=== PATIENT | female | born 1975 | race Caucasian/White ===

== ENCOUNTER → 2019-06-29 15:54 | Outpatient (CLI) | payer OTHER, SELFPAY ==
--- NOTE | ~2019-06-29 | MM_ITS ---
EXAMINATION: MM screening karen BI w [facility] HISTORY: Screening mammogram TECHNIQUE: Craniocaudal and mediolateral oblique 3-D tomosynthesis images were obtained and synthetic 2-D images were generated. CAD analysis was submitted and interpreted. COMPARISON: 10/14/2017 BREAST PARENCHYMAL COMPOSITION: There are scattered areas of fibroglandular density. FINDINGS: There is no evidence of suspicious mass, calcification, or architectural distortion to sugg est malignancy in either breast. There has been no suspicious interval change. IMPRESSION: 1. No mammographic evidence of malignancy. 2. Recommend routine screening mammography in one year. BI-RADS Category 1: Negative Reviewed, dictated and finalized at location A.
== END ==
PROVIDERS: PCP Physician Assistant; Visit Provider Obstetrics & Gynecology
DX: Z12.31 Encounter for screening mammogram for malignant neoplasm of breast (principal)
CPT/HCPCS: 77063; 77067

== ENCOUNTER 2019-10-18 10:33 | Outpatient (CLI) | payer OTHER, SELFPAY ==
--- NOTE | ~2019-10-18 | XR_ITS ---
XR thoracic spine 3V DATE: 10/18/2019 11:01 INDICATION: Thoracic spine generalized pain, radiculopathy. TECHNIQUE: AP, lateral, swimmer views COMPARISON: None FINDINGS: There is minimal dextroscoliosis of the upper thoracic spine. No fracture or dislocation or bone destruction. The thoracic pedicles are intact. No paraspinal soft tissue thickening. IMPRESSION: Minimal scoliosis Reviewed, dictated and finalized at location B. IMPRESSION: Minimal scoliosis
== END 2019-10-18 10:34 | disposition home or self-care (01) ==
PROVIDERS: PCP Physician Assistant; Visit Provider Physician Assistant
DX: M54.14 Radiculopathy, thoracic region (principal)
CPT/HCPCS: 72072

== ENCOUNTER → 2019-12-15 08:29 | Outpatient (CLI) | payer OTHER, SELFPAY ==
--- NOTE | ~2019-12-15 | XR_ITS ---
EXAMINATION:XR cervical spine 4-5V DATE: 12/15/2019 08:58 INDICATION: Neck pain TECHNIQUE: AP, lateral, lateral swimmers and odontoid views of the cervical spine are provided. COMPARISON: None FINDINGS: There is 1 mm of retrolisthesis of C6 on C7. There is straightening of the cervical spine w hich can be positional or due to muscular spasm. Small degenerative osteophytes project from the ante rior endplates of multiple vertebral bodies. The odontoid is intact. No fracture is identified. Verte bral body heights and disk spaces are normal. Prevertebral soft tissues are normal. IMPRESSION: 1. Mild cervical spondylosis without acute findings. Reviewed, dictated and finalized at location A.
== END ==
PROVIDERS: PCP Physician Assistant; Visit Provider Physician Assistant
DX: M79.629 Pain in unspecified upper arm (principal); M41.84 Other forms of scoliosis, thoracic region; M47.22 Other spondylosis with radiculopathy, cervical region
CPT/HCPCS: 72050

== ENCOUNTER → 2019-12-27 12:58 | Outpatient (CLI) | payer OTHER, SELFPAY ==
--- NOTE | ~2019-12-27 | MR_ITS ---
EXAMINATION: MR cervical spine wo con EXAM DATE: 12/27/2019 14:01 INDICATION: Bilateral arm, side pain, right side is worse. TECHNIQUE: Multi-sequential, multiplanar MR images of the cervical spine were obtained without contra st. Axial T2, axial T2 MERGE sequence. Sagittal T1, T2, T2 fat saturation images also obtained. Th ere is no prior study for comparison. FINDINGS: There is mild disc disease C4-C7. There is mild reversal of the normal cervical lordosis w hich may be positional or spasm. The vertebral bodies are aligned in the AP dimension. The spinal cor d signal intensity and intrinsic morphology is normal. Cervicomedullary junction is normal in appeara nce. There are no suspicious marrow signal abnormalities. Paraspinal soft tissue is unremarkable. Level by level evaluation: C2-C3: Disc does not extend beyond the endplate margin. Uncovertebral joint arthropathy: None. Facet joint arthropathy: Mild right. Neural foraminal stenosis: No stenosis. Central canal stenosis: No stenosis. C3-C4: Disc does not extend beyond the endplate margin. Uncovertebral joint arthropathy: Mild left. Facet joint arthropathy: Mild bilateral. Neural foraminal stenosis: No stenosis. Central canal stenosis: No stenosis. C4-C5: Disc does not extend beyond the endplate margin. Uncovertebral joint arthropathy: Minimal bilateral. Facet joint arthropathy: Minimal bilateral. Neural foraminal stenosis: No stenosis. Central canal stenosis: No stenosis. C5-C6: Disc does not extend beyond the endplate margin. Uncovertebral joint arthropathy: Mild. Facet joint arthropathy: Mild. Neural foraminal stenosis: Mild right. Central canal stenosis: Mild. C6-C7: There is a mild diffuse disc bulge. Uncovertebral joint arthropathy: Mild bilateral. Facet joint arthropathy: Minimal. Neural foraminal stenosis: No stenosis. Central canal stenosis: Mild. C7-T1: Disc does not extend beyond the endplate margin. Uncovertebral joint arthropathy: Mild. Facet joint arthropathy: Mild. Neural foraminal stenosis: No stenosis. Central canal stenosis: No stenosis. IMPRESSION: 1. Mild cervical spondylosis. 2. Reversal of cervical lordosis. Reviewed, dictated and finalized at location A.
--- NOTE | ~2019-12-27 | MR_ITS ---
EXAMINATION: MR thoracic spine wo con EXAM DATE: 12/27/2019 14:02 INDICATION: Bilateral arm, side pain. Right arm is worse. TECHNIQUE: Multi-sequential, multiplanar MR images of the thoracic spine were obtained without contra st. Sagittal T1, T2, T2 fat saturation, axial T2 weighted images reviewed. There is no prior study for comparison. FINDINGS: No appreciable scoliosis. The vertebral bodies are aligned in the AP dimension. Vertebral body and disc heights are well-maintained. There are no suspicious marrow signal abnormalities. Ralf artemio soft tissue is unremarkable. The spinal cord signal intensity and intrinsic morphology is glenn l. Mild thoracic facet arthropathy. There is a small central disc protrusion at the midthoracic level . No central canal or neural foraminal stenosis. IMPRESSION: Mild thoracic spondylosis. Reviewed, dictated and finalized at location A. IMPRESSION: Mild thoracic spondylosis.
== END ==
PROVIDERS: Visit Provider Physician Assistant
DX: M47.22 Other spondylosis with radiculopathy, cervical region (principal); M41.84 Other forms of scoliosis, thoracic region; M47.814 Spondylosis without myelopathy or radiculopathy, thoracic region
CPT/HCPCS: 72141; 72146

== ENCOUNTER → 2020-01-19 08:40 | Outpatient (CLI) | payer OTHER, SELFPAY ==
--- NOTE | ~2020-01-19 | XR_ITS ---
XR chest 2V DATE: 01/19/2020 08:58 INDICATION: Arm and axillary pain TECHNIQUE: PA and lateral views COMPARISON: None FINDINGS: Normal heart size. No hilar or mediastinal enlargement. No pulmonary infiltrate or consolid ation, pleural effusion or pulmonary vascular congestion or pneumothorax. Included skeletal structure s are unremarkable. IMPRESSION: Negative Reviewed, dictated and finalized at location A. IMPRESSION: Negative
== END ==
PROVIDERS: PCP Physician Assistant; Visit Provider Physician Assistant
DX: M79.629 Pain in unspecified upper arm (principal)
CPT/HCPCS: 71046

== ENCOUNTER → 2020-11-01 12:34 | Outpatient (CLI) | payer OTHER, SELFPAY ==
--- NOTE | ~2020-11-01 | MM_ITS ---
EXAMINATION: MM screening karen BI w [facility] HISTORY: Screening TECHNIQUE: Craniocaudal and mediolateral oblique 3-D tomosynthesis images were obtained and synthetic 2-D images were generated. CAD analysis was submitted and interpreted. COMPARISON: Comparison to multiple prior studies sequentially, with oldest reviewed study dated 06/2017. BREAST PARENCHYMAL COMPOSITION: There are scattered areas of fibroglandular density. FINDINGS: There is no evidence of suspicious mass, calcification, or architectural distortion to sugg est malignancy in either breast. There has been no suspicious interval change. IMPRESSION: 1. No mammographic evidence of malignancy. 2. Recommend routine screening mammography in one year. Reviewed, dictated and finalized at location A.
== END ==
PROVIDERS: PCP Physician Assistant; Visit Provider Obstetrics & Gynecology
DX: Z12.31 Encounter for screening mammogram for malignant neoplasm of breast (principal)
CPT/HCPCS: 77063; 77067

== ENCOUNTER → 2021-02-16 08:59 | Outpatient (CLI) | payer OTHER, SELFPAY ==
--- NOTE | ~2021-02-16 | XR_ITS ---
EXAMINATION: XR TMJ BI DATE: 02/16/2021 10:32 INDICATION: Arthralgias of bilateral temporomandibular joints TECHNIQUE: Left and right lateral open and closed mouth views of the temperament of the joints were o btained. COMPARISON: None. FINDINGS: There is normal alignment of the bilateral temporal mandibular joints in the closed mouth position. T here is normal anterior translation of the right mandibular condyle joint across the articular tuberc le in the open-mouth view of the right compartment of the joint. There is incomplete anterior transla tion of the left temporomandibular which remains posterior to the articular tubercle on the open-mout h view of the left temporomandibular joint however the mouth is only partially open which limits eval uation. No significant osteoarthritic changes appreciated. No fractures identified. Multiple dental r estorations. IMPRESSION: 1. Normal appearance to the bilateral temporomandibular joints with normal anterior translation with mouth opening on the right. Assessment on the left limited by only partial opening of the mouth for w hich the degree of anterior translation appears appropriate. Reviewed, dictated and finalized at location A. IMPRESSION: 1. Normal appearance to the bilateral temporomandibular joints with normal ante rior translation with mouth opening on the right. Assessment on the left limite d by only partial opening of the mouth for which the degree of anterior transla tion appears appropriate.
== END ==
PROVIDERS: PCP Physician Assistant; Visit Provider Physician Assistant
DX: M26.623 Arthralgia of bilateral temporomandibular joint (principal)
CPT/HCPCS: 70330

== ENCOUNTER → 2022-04-24 14:00 | Outpatient (CLI) | payer OTHER, SELFPAY ==
--- NOTE | ~2022-04-24 | MM_ITS ---
EXAMINATION: MM screening karen BI w [facility] HISTORY: Screening mammogram TECHNIQUE: Craniocaudal and mediolateral oblique 3-D tomosynthesis images were obtained and synthetic 2-D images were generated. CAD analysis was submitted and interpreted. COMPARISON: 11/01/2020, , 11/05 2017 bilateral screening mammogram examinations BREAST PARENCHYMAL COMPOSITION: There are scattered areas of fibroglandular density. FINDINGS: There is no evidence of suspicious mass, calcification, or architectural distortion to sugg est malignancy in either breast. There has been no suspicious interval change. IMPRESSION: 1. No mammographic evidence of malignancy. 2. Recommend routine screening mammography in one year. BI-RADS Category 1: Negative Reviewed, dictated and finalized at location A. 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
== END ==
PROVIDERS: PCP Physician Assistant; Visit Provider Obstetrics & Gynecology
DX: Z12.31 Encounter for screening mammogram for malignant neoplasm of breast (principal)
CPT/HCPCS: 77063; 77067

== ENCOUNTER 2024-07-29 09:50 | Outpatient (CLI) | payer OTHER, SELFPAY ==
--- NOTE | ~2024-07-29 | MM_ITS ---
EXAMINATION: MM screening karen BI [facility] HISTORY: Screening TECHNIQUE: Craniocaudal and mediolateral oblique 3-D tomosynthesis images were obtained and synthetic 2-D images were generated. CAD analysis was submitted and interpreted. COMPARISON: Comparison to multiple prior studies sequentially, with oldest reviewed study dated 06/2017. BREAST PARENCHYMAL COMPOSITION: There are scattered areas of fibroglandular density. FINDINGS: There is no evidence of suspicious mass, calcification, or architectural distortion to sugg est malignancy in either breast. There has been no suspicious interval change. IMPRESSION: 1. No mammographic evidence of malignancy. 2. Recommend routine screening mammography in one year. BI-RADS Category 1: Negative Reviewed, dictated and finalized at location B.
== END 2024-07-29 09:51 | disposition home or self-care (01) ==
LOC: MICIMG 09:51
PROVIDERS: PCP Physician Assistant; Visit Provider Obstetrics & Gynecology
DX: Z12.31 Encounter for screening mammogram for malignant neoplasm of breast (principal)
CPT/HCPCS: 77063; 77067

== ENCOUNTER 2024-09-13 10:02 | Day surgery (SDC) | payer OTHER, SELFPAY ==
[2024-03-23 11:36] VITALS: BMI 26.6
[2024-07-15 14:41] VITALS: BMI 23.4
--- NOTE | 2024-09-13 07:10 | P.PNAN_ITS ---
Anes - Initial Pre Proc Eval Procedure: Operation Date: 09/13/24 12:00 Proposed Procedures p Screening Colonoscopy - Arsh Nevarez MD Date/Time: 09/13/24 07:10 Surgeon: Arsh Nevarez MD Pre Op Diagnosis: Neoplasm Screening Patient Data Age: 49 Gender: F Height: 1.65 m Weight: 64 kg Allergies Allergy/AdvReac Type Severity Reaction Status Date / Time Sulfa (Sulfonamide Allergy Mild RASH Verified 09/13/24 11:10 Antibiotics) Home Medications ?Medication ?Instructions ?Recorded ?Confirmed ?Type bupropion HCl 150 mg 24 hr tablet, 150 mg PO DAILY 07/15/24 09/13/24 History extended release spironolactone 100 mg tablet 100 mg PO Q12H 07/15/24 09/13/24 History tirzepatide 7.5 mg/0.5 mL 7.5 mg subcut WEEKLY 07/15/24 09/13/24 History subcutaneous pen injector (Younjaro) Patient hx anesthesia problems: none Family hx anesthesia problems: none Results Review: All pre-operative results and documents have been reviewed as part of the pre-operative evaluation. [facility] Social History Social History Smoking status: Never smoker Alcohol intake: current Substance use: never Substance use type: does not use Living arrangements: with family Spiritual care concerns: No Anes - Eval Final PreProcedure Day of Procedure 09/13/24 07:10 Patient weight: normal Heart: regular rate and rhythm Lungs: clear to auscultation and normal air movement Airway: Mallampati scale class II Neurological: alert and oriented Last oral intake: >/= 8 hours ASA classification: II Emergent: no Anesthetic plan: proceed Anesthesia type and monitoring: general GIVS and standard monitoring Results Review: All pre-operative results and documents have been reviewed as part of the pre- operative evaluation. Informed Consent: The patient's anesthetic plan and its attendant risks and benefits were discussed with the patient/family/POA. Questions were solicited and answers provided to the satisfaction of the patient/family/POA.
[2024-09-13 10:40] VITALS: BP 120/71; PULSE 92; RESP 18; TEMP 36.9; O2SAT 99
[2024-09-13] MEDS: LACTATED RINGERS 1,000 ML 150 ML IV CONT (10:52)
--- OUTSIDE RECORDS SUMMARY | 2024-09-13 10:56 | XMS_ITS | Data Portability ---
Author Organization [facility] Kassandra Noonan Address [address] [place] [address] Care Team Providers Care Flight Radio Operator Name Role Phone KAVITHA OZUNA Primary Care Provider ENRIQUE Jane Inventory Assistant Assessment Encounter Date Assessment Date Assessment LastModified by Organization Details LastModified Time 07/15/2023 07/15/2023 Mammogram UTD in april pap smear UTD colonoscopy due. Not available 07/15/2023 12:24:39 01/14/2024 01/14/2024 Mammogram UTD in april pap smear UTD colonoscopy due. Not available 01/14/2024 11:52:47 Plan of Treatment Reminders Order Date Submit Date Provider Last Modified By Organization Details Last Modified Time Details Appointments ANY 15 2024 10:00A M LIZZETTE Sullivan Not available Not available Not available Lab rapid strep group A, throat 2024 025 [email or web address] In-Office Order, Internal Use Only DO Not Attach Compendium DO Not Attach Compendium, Do Not Delete/merge, [id number] 08/03/2024 01:31:16 TSH + free T4, serum 2023 025 NICK [facility], [address], [place], [address], 09/12/2024 04:06:30 T3, free, serum or plasma 2023 025 NICK [facility], [address], [place], [address], 09/12/2024 04:06:31 thyropero xidase Ab, serum 2023 025 NICK [facility], [address], [place], [address], 09/12/2024 04:06:31 CBC w/ auto diff 2023 024 NICK Richardson, [address], [place], [address], 01/08/2024 03:36:59 CMP, serum or plasma 2023 024 NICK Richardson, [address], [place], [address], 01/08/2024 03:36:57 vitamin B12 + folate, serum or blood 2023 024 NICK Richardson, [address], [place], [address], 01/08/2024 03:36:57 TSH + free T4, serum 2023 024 NCIK Richardson, [address], [place], [address], 01/08/2024 03:36:56 lipid panel, serum 2023 024 NICK Richardson, [address], [place], [address], 01/08/2024 03:36:56 HbA1c (hemoglob in A1c), blood 2023 024 NICK Richardson, [address], [place], [address], 01/08/2024 03:36:58 Referral None recorded. Procedures colonosco py screening (PROC) 2023 024 [facility], [address] [place], [address], 10/10/2023 15:18:27 Surgeries None recorded. Imaging None recorded. Medication Orders Linzess 72 mcg capsule 2023 [id number], [address], [place], [place], [id number], 01/15/2024 14:04:37 Mounjaro 7.5 mg/0.5 mL subcutane ous pen injector 2023 [id number], [address], [place], [place], [id number], 01/14/2024 12:18:32 Zepbound 10 mg/0.5 mL subcutane ous pen injector 2023 [email or web address] [facility] #[id number], [address], [place], [place], [id number], 12/03/2023 18:28:14 Patient TargetsNo targets recorded. Patient InstructionsNo instructions recorded. Reason for Referral None Reported. Results Created Date Observation Date Name Description Value Unit Range Abnormal Flag Note LastModifiedBy Organization Detail LastModifiedTime 01/07/20 24 01/08/2024 LIPID PANEL W/ CHOL/ HDL RATIO cholesterol, total 179 mg/dL 100-19 9 Not Available [facility] ([facility]) [address] [facility], [place], [address], 01/08/2024 03:36:56 01/07/2001/08/2024 LIPID PANEL W/ CHOL/ HDL RATIO triglyceride s 117 mg/dL 0-149 Not Available [facility] ([facility]) [address] [facility], [place], [address], 01/08/2024 03:36:56 01/07/20 24 01/08/2024 LIPID PANEL W/ CHOL/ HDL RATIO HDL cholesterol 42 mg/dL >39 Not Available [facility] ([facility]) [address] [place], [address], 01/08/2024 03:36:56 01/07/20 24 01/08/2024 LIPID PANEL W/ CHOL/ HDL RATIO VLDL cholesterol amy 21 mg/dL 5-40 Not Available [facility] ([facility]) [address] [place], [address], 01/08/2024 03:36:56 01/07/20 24 01/08/2024 LIPID PANEL W/ CHOL/ HDL RATIO LDL chol calc ([facility]) 116 mg/dL 0-99 above high normal Not Available [facility] ([facility]) [address] [place], [address], 01/08/2024 03:36:56 01/07/20 24 01/08/2024 LIPID PANEL W/ CHOL/ HDL RATIO T. chol/HDL ratio 4.3 ratio 0.0-4. 4 T. Chol/ HDL Ratio Men Women 1/2 Avg.R isk 3.4 3.3 Avg.R isk 5.0 4.4 2X Avg.R isk 9.6 7.1 3X Avg.R isk 23.4 11.0 Not Available [facility] ([facility]) [address] [place], [address], 01/08/2024 03:36:56 01/07/20 24 01/08/2024 TSH+F REE T4 TSH 0.907 uIU/m L 0.450- 4.500 Not Available [facility] ([facility]) [address] [place], [address], 01/08/2024 03:36:56 01/07/20 24 01/08/2024 TSH+F REE T4 T4,free(dire ct) 1.25 NG/dL 0.82-1 .77 Not Available [facility] ([facility]) [address] [place], [address], 01/08/2024 03:36:56 01/07/20 24 01/08/2024 COMP. METAB OLIC PANEL (14) glucose 84 mg/dL 70-99 Not Available [facility] ([facility]) [address] [place], [address], 01/08/2024 03:36:57 01/07/20 24 01/08/2024 COMP. METAB OLIC PANEL (14) BUN 9 mg/dL 6-24 Not Available [facility] ([facility]) [address] [place], [address], 01/08/2024 03:36:57 01/07/20 24 01/08/2024 COMP. METAB OLIC PANEL (14) creatinine 0.95 mg/dL 0.57-1 .00 Not Available [facility] ([facility]) [address] [place], [address], 01/08/2024 03:36:57 01/07/20 24 01/08/2024 COMP. METAB OLIC PANEL (14) eGFR 75 mL/mi n/1.7 3 >59 Not Available [facility] ([facility]) [address] [place], [address], 01/08/2024 03:36:57 01/07/20 24 01/08/2024 COMP. METAB OLIC PANEL (14) BUN/creatini ne ratio 9 9-23 Not Available [facility] ([facility]) [address] [place], [address], 01/08/2024 03:36:57 01/07/20 24 01/08/2024 COMP. METAB OLIC PANEL (14) sodium 136 mmol/ L 134-14 4 Not Available [facility] ([facility]) [address] [place], [address], 01/08/2024 03:36:57 01/07/20 24 01/08/2024 COMP. METAB OLIC PANEL (14) potassium 4.7 mmol/ L 3.5-5. 2 Not Available [facility] ([facility]) [address] [place], [address], 01/08/2024 03:36:57 01/07/20 24 01/08/2024 COMP. METAB OLIC PANEL (14) chloride 99 mmol/ L 96-106 Not Available [facility] ([facility]) [address] [place], [address], 01/08/2024 03:36:57 01/07/20 24 01/08/2024 COMP. METAB OLIC PANEL (14) carbon dioxide, total 23 mmol/ L 20-29 Not Available [facility] ([facility]) [address] [place], [address], 01/08/2024 03:36:57 01/07/20 24 01/08/2024 COMP. METAB OLIC PANEL (14) calcium 9.8 mg/dL 8.7-10 .2 Not Available [facility] ([facility]) [address] [place], [address], 01/08/2024 03:36:57 01/07/20 24 01/08/2024 COMP. METAB OLIC PANEL (14) protein, total 7.0 g/dL 6.0-8. 5 Not Available [facility] ([facility]) [address] [facility] [place], [address], 01/08/2024 03:36:57 01/07/20 24 01/08/2024 COMP. METAB OLIC PANEL (14) albumin 4.6 g/dL 3.9-4. 9 Not Available [facility] ([facility] [address] [facility] [place], [address], 01/08/2024 03:36:57 01/07/20 24 01/08/2024 COMP. METAB OLIC PANEL (14) globulin, total 2.4 g/dL 1.5-4. 5 Not Available [facility] ([facility]) [address] [facility] [place], [address], 01/08/2024 03:36:57 01/07/20 24 01/08/2024 COMP. METAB OLIC PANEL (14) bilirubin, total 0.6 mg/dL 0.0-1. 2 Not Available [facility] ([facility]) [address] [facility] [place], [address], 01/08/2024 03:36:57 01/07/20 24 01/08/2024 COMP. METAB OLIC PANEL (14) alkaline phosphatase 60 IU/L 44-121 Not Available [facility] ([facility]) [address] [facility] [place], [address], 01/08/2024 03:36:57 01/07/20 24 01/08/2024 COMP. METAB OLIC PANEL (14) AST (SGOT) 18 IU/L 0-40 Not Available [facility] ([facility]) [address] [facility] [place], [address], 01/08/2024 03:36:57 01/07/20 24 01/08/2024 COMP. METAB OLIC PANEL (14) ALT (SGPT) 17 IU/L 0-32 Not Available [facility] ([facility]) [address] [facility] [place], [address], 01/08/2024 03:36:57 01/07/20 24 01/08/2024 VITAM IN B12 AND FOLAT E vitamin B12 670 pg/mL 232-12 45 Not Available [facility] ([facility]) [address] [facility] [place], [address], 01/08/2024 03:36:57 01/07/20 24 01/08/2024 VITAM IN B12 AND FOLAT E folate (folic acid), serum >20.0 NG/mL >3.0 A serum folat e roverto ntrat ion of less than 3.1 ng/mL is consi dered to repre sent clini amy defic iency . Not Available [facility] ([facility]) [address] [facility], [place], [address], 01/08/2024 03:36:57 01/07/2001/08/2024 HEMOG LOBIN A1C hemoglobin A1C 5.4 % 4.8-5. 6 Predi abete s: 5.7 - 6.4 Diabe christo: >6.4 Glyce laurel contr ol for adult s with diabe christo: <7.0 Not Available [facility] ([facility]) [address] [facility], [place], [address], 01/08/2024 03:36:58 01/07/2001/07/2024 CBC WITH DIFFE RENTI AL/PL ATELE T WBC 4.9 x10e3 /uL 3.4-10 .8 Not Available [facility] ([facility]) [address] [facility], [place], [address], 01/08/2024 03:36:59 01/07/20 24 01/07/2024 CBC WITH DIFFE RENTI AL/PL ATELE T RBC 4.73 x10e6 /uL 3.77-5 .28 Not Available [facility] ([facility]) [address] [facility], [place], [address], 01/08/2024 03:36:59 01/07/2001/07/2024 CBC WITH DIFFE RENTI AL/PL ATELE T hemoglobin 15.1 g/dL 11.1-1 5.9 Not Available [facility] ([facility]) [address] [place], [address], 01/08/2024 03:36:59 01/07/2001/07/2024 CBC WITH DIFFE RENTI AL/PL ATELE T hematocrit 45.5 % 34.0-4 6.6 Not Available [facility] ([facility]) [address] [place], [address], 01/08/2024 03:36:59 01/07/20 24 01/07/2024 CBC WITH DIFFE RENTI AL/PL ATELE T MCV 96 fL 79-97 Not Available [facility] ([facility]) [address] [facility], [place], [address], 01/08/2024 03:36:59 01/07/20 24 01/07/2024 CBC WITH DIFFE RENTI AL/PL ATELE T MCH 31.9 pg 26.6-3 3.0 Not Available [facility] ([facility]) [address] [facility], [place], [address], 01/08/2024 03:36:59 01/07/20 24 01/07/2024 CBC WITH DIFFE RENTI AL/PL ATELE T MCHC 33.2 g/dL 31.5-3 5.7 Not Available [facility] ([facility]) [address] [place], [address], 01/08/2024 03:36:59 01/07/20 24 01/07/2024 CBC WITH DIFFE RENTI AL/PL ATELE T RDW 12.0 % 11.7-1 5.4 Not Available [facility] ([facility]) [address] [place], [address], 01/08/2024 03:36:59 01/07/20 24 01/07/2024 CBC WITH DIFFE RENTI AL/PL ATELE T platelets 377 x10e3 /uL 150-45 0 Not Available [facility] ([facility]) [address] [place], [address], 01/08/2024 03:36:59 01/07/20 24 01/07/2024 CBC WITH DIFFE RENTI AL/PL ATELE T neutrophils 53 % notest ab. Not Available [facility] ([facility]) [address] [place], [address], 01/08/2024 03:36:59 01/07/20 24 01/07/2024 CBC WITH DIFFE RENTI AL/PL ATELE T lymphs 36 % notest ab. Not Available [facility] ([facility]) [address] [facility], [place], [address], 01/08/2024 03:36:59 01/07/20 24 01/07/2024 CBC WITH DIFFE RENTI AL/PL ATELE T monocytes 8 % notest ab. Not Available [facility] ([facility]) [address] [facility], [place], [address], 01/08/2024 03:36:59 01/07/20 24 01/07/2024 CBC WITH DIFFE RENTI AL/PL ATELE T eos 2 % notest ab. Not Available [facility] ([facility]) [address] [facility], [place], [address], 01/08/2024 03:36:59 01/07/20 24 01/07/2024 CBC WITH DIFFE RENTI AL/PL ATELE T basos 1 % notest ab. Not Available [facility] ([facility]) [address] [facility], [place], [address], 01/08/2024 03:36:59 01/07/20 24 01/07/2024 CBC WITH DIFFE RENTI AL/PL ATELE T neutrophils (absolute) 2.6 x10e3 /uL 1.4-7. 0 Not Available [facility] ([facility]) [address] [facility], [place], [address], 01/08/2024 03:36:59 01/07/20 24 01/07/2024 CBC WITH DIFFE RENTI AL/PL ATELE T lymphs (absolute) 1.8 x10e3 /uL 0.7-3. 1 Not Available [facility] ([facility]) [address] [facility], [place], [address], 01/08/2024 03:36:59 01/07/20 24 01/07/2024 CBC WITH DIFFE RENTI AL/PL ATELE T monocytes(ab solute) 0.4 x10e3 /uL 0.1-0. 9 Not Available [facility] ([facility]) [address] [place], [address], 01/08/2024 03:36:59 01/07/20 24 01/07/2024 CBC WITH DIFFE RENTI AL/PL ATELE T eos (absolute) 0.1 x10e3 /uL 0.0-0. 4 Not Available [facility] ([facility]) [address] [facility], [place], [address], 01/08/2024 03:36:59 01/07/20 24 01/07/2024 CBC WITH DIFFE RENTI AL/PL ATELE T baso (absolute) 0.0 x10e3 /uL 0.0-0. 2 Not Available [facility] ([facility]) [address] [facility], [place], [address], 01/08/2024 03:36:59 01/07/20 24 01/07/2024 CBC WITH DIFFE RENTI AL/PL ATELE T immature granulocytes 0 % notest ab. Not Available [facility] ([facility]) [address] [facility], [place], [address], 01/08/2024 03:36:59 01/07/20 24 01/07/2024 CBC WITH DIFFE RENTI AL/PL ATELE T immature grans (abs) 0.0 x10e3 /uL 0.0-0. 1 Not Available [facility] ([facility]) [address] [place], [address], 01/08/2024 03:36:59 08/03/1908/02/2024 rapid strep group A, throa t Strep negati ve Not Available In-Office Order Internal Use Only DO Not Attach Compendium DO Not Attach Compendium, Do Not Delete/merge, [id number] 08/02/2024 16:06:54 07/30/1907/29/2024 MAMMO , scree sophia, digit al, bilat eral No observ ation record ed. [email or web address] [facility] [address], [place], [address], 08/20/2024 12:20:49 Result Notes None recorded. Problems Name Problem SNOMED Code Status Onset Date Resolution Date Notes Provider Name and Address Organization Details Recorded Time Irritable bowel syndrome characterized by constipation 255386477 Active 2023 LIZZETTE Sullivan Attn: Accountin g,[address] [facility], [place], [address], [place] - [facility] 4 09:56:26 Dietary management surveillance Active 2023 LIZZETTE Sullivan Attn: Accountin g,[address] [facility], [place], [address], [place] [facility] 4 09:56:28 Degeneration of lumbar intervertebral disc 87505498 Active 2023 LIZZETTE Sullivan Attn: Accountin g,[address] [facility], [place], [address], [place] [facility] 4 09:56:36 Body mass index 20-24 - normal 067425857 Active 2023 LIZZETTE Sullivan Attn: Accountin g,[address] [facility], [place], [address], [place] [facility] 4 09:56:53 Low back pain 243793429 Active 2023 LIZZETTE Sullivan Attn: Accountin g,[address] [facility], [place], [address], [place] [facility] 4 09:56:55 Reduced libido 1818316 Active 2023 LIZZETTE Sullivan Attn: Accountin g,[address] [facility], [place], [address], [place] [facility] 4 09:57:01 Long-term drug therapy Active 2023 LIZZETTE Sullivan Attn: Neema ferro,[address] [facility], [place], [address], [facility] - [facility] 4 09:57:02 Problem Notes None recorded. Medical Equipment None Reported. Allergies Allergen ID Allergen Name Allergen Category Reaction Reaction Severity Criticality Documentation Date Start Date Code Code System Note Provider Name and Address Organization Details Recorded Time 474891 Substance with sulfonami de structure and antibacte rial mechanism of action (substanc e) medicatio n Not available Not available Not available 07/15/2023 38578 [id number] SNOMED PAULINE Farley, [place] - [facility] 4 12:09:27 Medications Name Sig Start Date Stop Date Status Note LastModified by Organization Details LastModified Time cyclobenzap rine 10 mg tablet TAKE 1 TABLET BY MOUTH EVERY NIGHT AT BEDTIME NEEDED active Not Available Not Available No t Available azithromyci n 250 mg tablet TAKE 2 TABLETS (500 MG) BY ORAL ROUTE ONCE DAILY FOR 1 DAY THEN 1 TABLET (250 MG) BY ORAL ROUTE ONCE DAILY FOR 4 DAYS active Not Available Not Available No t Available fluconazole 150 mg tablet TAKE 1 TABLET BY MOUTH EVERY OTHER DAY FOR 3 DOSES active Not Available Not Available No t Available meloxicam 15 mg tablet TAKE 1 TABLET BY MOUTH EVERY DAY NEEDED active Not Available Not Available No t Available spironolact one 100 mg tablet active Not Available Not Available Not Available terconazole 0.8 % vaginal cream APPLY SMALL AMOUNT VAGINALLY TO THE AFFECTED AREA EVERY NIGHT AT BEDTIME FOR 3 DAYS DIRECTED active Not Available Not Available No t Available tretinoin 0.05 % topical cream APPLY PEA SIZED AMOUNT TOPICALLY TO FACE EVERY NIGHT active Not Available Not Available No t Available amoxicillin 875 mg-potassiu m clavulanate 125 mg tablet TAKE 1 TABLET BY MOUTH TWICE DAILY 01/13 completed Not Available Not Available Not Available bupropion HCl XL 150 mg 24 hr tablet, extended release TAKE 1 TABLET BY MOUTH DAILY active Not Available Not Available No t Available Linzess 72 mcg capsule TAKE 1 CAPSULE BY MOUTH EVERY DAY FOR IRRITABLE BOWEL SYNDROME active Not Available Not Available No t Available Wegovy 1 mg/0.5 mL subcutaneou s pen injector 07/14 completed Not Available Not Available Not Available Mounjaro 7.5 mg/0.5 mL subcutaneou s pen injector ADMINISTE R 7.5 MG UNDER THE SKIN EVERY WEEK active Not Available Not Available No t Available Mounjaro 5 mg/0.5 mL subcutaneou s pen injector ADMINISTE R 5 MG UNDER THE SKIN EVERY WEEK NEEDED 07/14 completed Not Available Not Available Not Available Mounjaro 10 mg/0.5 mL subcutaneou s pen injector ADMINISTE R 10 MG UNDER THE SKIN EVERY WEEK 01/13 completed Not Available Not Available Not Available Zepbound 10 mg/0.5 mL subcutaneou s pen injector Inject by subcutane ous route for 28 days. 12/02 completed Not Available Not Available Not Available Vitals Date Recorded Systolic blood pressure Diastolic blood pressure Provider Name and Address Organization Details Last Updated DateTime 07/15/2023 128 mm[Hg] 84 mm[Hg] LIZZETTE Sullivan Attn: Accounting,[address] [place], [address], [facility] 07/15/2023 12:36:47 Date Recorded Body height Body mass index (BMI) Body weight Respiratory rate Oxygen saturation Oxygen saturation in Arterial blood by Pulse oximetry Heart rate Systolic blood pressure Diastolic blood pressure Provider Name and Address Organization Details Last Updated DateTime 4 165.1 cm 26.6 kg/m2 36028.7 8 g 18 /min 99 % 99 % 85 /min 122 mm[Hg] 72 mm[Hg] Kamran Georges MA [facility] 4 12:16:12 Date Recorded Body height Body mass index (BMI) Body weight Respiratory rate Oxygen saturation Oxygen saturation in Arterial blood by Pulse oximetry Heart rate Systolic blood pressure Diastolic blood pressure Provider Name and Address Organization Details Last Updated DateTime 4 165.1 cm 24.4 kg/m2 17419.7 2 g 18 /min 99 % 99 % 85 /min 130 mm[Hg] 78 mm[Hg] PAULINE Farley [facility] 4 11:34:03 Social History Question Answer Notes LastModified by Organizat ion Details LastModified Time Tobacco Smoking Status Former Smoker Kamran Georges MA null, [facility] 07/15/2023 12:12:13 Do You Have An Advance Directive? No Information n ot available 07/15/2023 Are You Blind Or Do You Have Difficulty Seeing? No Information n ot available 07/15/2023 What Is Your Level Of Caffeine Consumption? Heavy SODA Information not available 07/15/2023 In The 14 Days Before Symptom Onset, Have You Had Close Contact With A Laboratory-confirm ed COVID-19 While That Case Was Ill? No Information n ot available 07/15/2023 In The 14 Days Before Symptom Onset, Have You Had Close Contact With A Person Who Is Under Investigation For COVID-19 While That Person Was Ill? No Information not available 07/15/2023 Have You Been To An Area Known To Be High Risk For COVID-19? No Information not available 07/15/2023 Are You Deaf Or Do You Have Serious Difficulty Hearing? No Information not available 07/15/2023 What Type Of Diet Are You Following? REGULAR Information n ot available 07/15/2023 What Is The Highest Grade Or Level Of School You Have Completed Or The Highest Degree You Have Received? [id number] Information not available 07/15/2023 Are There Any Guns Present In Your Home? No Information not available 01/14/2024 What Was The Date Of Your Most Recent Tobacco Screening? 01/14/2024 Information not available 01/14/2024 What Is Your Current Pack Years? 10-19packyea rs Information not available 07/15/2023 Do You Use Your Seat Belt Or Car Seat Routinely? Yes Information not available 07/15/2023 Do You Have Smoke And Carbon Monoxide Detectors In Your Home? Yes Information not available 07/15/2023 At What Age Did You Start Smoking Tobacco? 17 Information not available 07/15/2023 How Much Tobacco Do You Smoke? No Information not available 07/15/2023 Do You Use Sunscreen Routinely? Yes Information not available 07/15/2023 Has Tobacco Cessation Counseling Been Provided? No Information not available 07/15/2023 How Many Years Have You Smoked Tobacco? 18 Information not available 07/15/2023 Sex: Female Functional Status Question Answer Note LastModified by Organizat ion Details LastModified Time Do you use any illicit or recreational drugs? No Information not available 07/15/2023 Do you or have you ever used any other forms of tobacco or nicotine? No Information not available 07/15/2023 What is your level of alcohol consumption? Occasional Information not available 07/15/2023 Are you currently employed? Yes Information not available 07/15/2023 Are you able to care for yourself? Yes Information n ot available 07/15/2023 What is your occupation? [employer] Information not available 07/15/2023 What is your exercise level? Occasional Information not available 07/15/2023 Mental Status Question Answer Note LastModified by Organization D etails LastModified Time Do you feel stressed (tense, restless, nervous, or anxious, or unable to sleep at night)? [id number] Information not available 07/15/2023 Family History Relationship Description Onset Age of this Age Resolved Age Notes LastModified by Organization Details LastModified Time Father Diabetes mellitus [email or web address] Not available 2023 17:20:52 Father Hypercholest erolemia tcarterma Not available 2023 17:21:06 Mother Disorder of thyroid gland tcarterma Not available 2023 17:20:57 Mother Hypertensive disorder tcarterma Not available 2023 17:21:21 Mother Osteoporosis [email or web address] Not avai lable 07/15/2023 17:21:31 Mother Heart disease tcarterma Not available 2023 11:29:18 Sister Hypercholest erolemia tcarterma Not available 2023 17:21:06 Sister Hypertensive disorder tcarterma Not available 2023 17:21:21 Medical History Condition Response Coronary Artery Disease N Other N Atrial Fibrillation N High Blood Pressure N Depression N COPD N Blood Clots N Anxiety Disorder N Muscle, Joint, or Bone Problems N Acid Reflux (GERD) N Cancer N Stroke N High Cholesterol N Liver Disease N Headaches N Kidney or Bladder Problems N Thyroid Problems N GI Problems N Skin Problems N Anemia N Heart Attack ([place]) N Diabetes N Seizures/Epilepsy N Asthma N Allergies N Hepatitis N Heart Failure N Osteoporosis N Gynecological History Statement/Question Response Flow Light Date of LMP 07/01/2023 Menses Monthly Y Duration of Flow (days) 2 Current Control Method Ablation LMP Approximate Obstetrics History GPAL:G 2 P 2 0 0 2 Type Value Multiple Births 0 Full Term 2 Induced 0 Spontaneous 0 Premature 0 Living 2 Total 2 Past Encounters Encounter ID Performer Location Encounter Start Date Encounter Closed Date Diagnosis/Indication Diagnosis SNOMED-CT Code Diagnosis ICD10 Code Diagnosis Note [id number] Amado Koch MD [facility] [employer] [address] [place] [address] 07/15/2023 11:52:19 07/15/2023 12:43:16 Low back pain [id number] M54.50 stable on meloxicam 150mg daily PRN Degenerati on of lumbar intervertebral disc 77527691 M51.36 as above. hx noted Reduced libido 2478971 R 68.82 taking wellbutrin XL from gyne for libido boost. Screening for malignant neoplasm of colon 018087667 Z12.11 due for baseline colonoscop y screening. Long-term drug therapy [id number] Z79.899 routine labs are due fasting. Cholesterol screening 27 9358226 Z13.220 Diabetes m ellitus screening 755129576 Z13.1 Body mass index 25-29 - overweight 932220451 Z68.26 change to zepbound 10mg weekly dosing for cost savings, since mounjaro pricing is excessive. [id number] Amado Koch MD [facility] [employer] [address] [place] [address] 01/14/2024 11:22:19 01/14/2024 12:47:44 Body mass index 20-24 - normal [id number] Z68.24 BMI Low back pain 998295563 M54.50 stable on meloxicam 150mg daily PRN Degenerati on of lumbar intervertebral disc 67880200 M51.369 Patient is stable at this time, weight loss has helped some for her chronic low back pain related to degenerati ve disc Reduced libido 3846971 R 68.82 taking wellbutrin XL from gyne for libido boost. Long-term drug therapy 100072929 Z79.899 All labs are up-to-date from December and reviewed Irritable bowel syndrome characterized by constipation 510122404 K58.1 Trial of Linzess 72 mcg daily for IBS constipati on symptoms Dietary ma nagement surveillance 394240346 Z71.3 Refill on lower dose Mounjaro 7.5 mg weekly Adult [facility] th examination 749824392 Z00.00 Annual wellness exam completed Thyroid di sorder screening 749885804 Z13.29 Following thyroid function studies while on Mounjaro injectable therapy. [id number] Amado Koch MD [facility] [address] [place] [address] 08/02/2024 15:46:22 08/02/2024 16:24:10 Sore throat 770081178 J02.9 Health Concerns Section Related Observation LastModified by Organization Detai ls LastModified Time None Recorded Concern Status LastModified by Organization Details LastModified Time None Recorded Advance Directives Directive N: Payers Encounter Date Sequence Insurance Name Policy Number Policy Smith Covered Member ID Smith Member ID Guarantor Name 07/15/2023 1 [facility] [id number] Olivia Gomes [id number] Olivia Gomes 07/15/2023 2 [facility] - [employer] (POS II) Anmol Gomes [id number] Olivia Gomes 01/14/2024 1 [facility] [id number] Olivia Gomes [id number] Olivia Gomes 01/14/2024 2 [facility] [employer] (POS II) Anmol Gomes [id number] Olivia Gomes 08/02/2024 1 [facility] [id number] Olivia Gomes [id number] Olivia Gomes 08/02/2024 2 [facility] Anmol Gomes [id number] Olivia Gomes Notes Date Note Type Note Provider Name and Address Organization Details Recorded Time 07/15/2023 text/html Generic HPI TemplateReported bypatient.Notes:pt is here to re-establish with PCP at new office. Hx of lumbar DDD and low back pain. Has improved some with great weight loss on mounjaro therapy. LIZZETTE Sullivan Attn: Accounting,[address] [facility], [place], [address], [facility] 07/17/2023 17:09:15 01/14/2024 text/html Generic HPI TemplateReported bypatient.Notes:Aidee reynoso has had terrific weight loss on injectable Mounjaro therapy. She does have hx of lumbar DDD and low back pain. Has improved some with great weight loss on mounjaro therapy. LIZZETTE Sullivan Attn: Accounting,[address] [facility], [place], [address], [facility] 02/02/2024 09:57:38 OBGyn Episode No OBEpisode recorded.
--- OUTSIDE RECORDS SUMMARY | 2024-09-13 10:56 | XMS_ITS | Clinical Summary ---
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 This disclosure is being madepursuant to the Care Everywhere program and may not contain all information available regarding this patient. Last updated 18.[facility] [employer] Allergies Active Allergy Reactions Criticality Noted Date Comments Sulfa Drugs 03/29/2016 Medications * Be aware that medications may not be up to date on this document. Alwaysverify current medications with the patient. 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 Pulse 86 06/20/2017 10:35 AM REEL CART OPERATOR Temperature 37.1 C (98.8 F) 06/20/2017 10:35 AM REEL CART OPERATOR Respiratory Rate 16 06/20/2017 10:35 AM REEL CART OPERATOR Oxygen Saturation 97% 06/20/2017 10:35 AM REEL CART OPERATOR Inhaled Oxygen Concentration - - Weight 83.9 kg (185 lb) 06/20/2017 10:35 AM REEL CART OPERATOR Height 165.1 cm (5' 5) 06/20/2017 10:35 AM REEL CART OPERATOR Body Mass Index 30.79 06/20/2017 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 REEL CART OPERATOR Plan of Treatment Health Maintenance Due Date Last Done Comments COLOGUARD (AGES 45-75) - COL ON CA SCREENING 1977 COLON MONITORING 1977 COLONOSCOPY - COLON CA SCREENING 1977 CT COLONOGRAPHY - COLON CA SCREENING 1977 Colorectal Cancer Screening 1977 FIT - COLON CA SCREENING 1977 FLEX SIG - COLON CA SCREENING 1977 LIPID TESTING 1977 MAMMOGRAM 1977 HIV SCREENING 1992 HEPATITIS C SCREENING 03/30/1995 DTAP/TDAP/TD VACCINES (1 - Tdap) 1996 HEPATITIS B VACCINE (1 of 3 - 19+ 3-dose series) 1996 SCREENING FOR DIABETES 06/20/2017 COVID-19 VACCINE (1 - 2023-2 5 season) 2023 DEPRESSION SCREENING 04/14/2024 INFLUENZA VACCINE (Season Ended) 2024 ZOSTER VACCINE (1 of 2) 2027 HIB VACCINE Aged Out No longer eligi ble based on patient's age to complete this topic HPV VACCINE Aged Out No longer eligi ble based on patient's age to complete this topic MENINGOCOCCAL (Group B) VACC INE SHARED DECISION-MAKING Aged Out No longer eligibl e based on patient's age to complete this topic MENINGOCOCCAL GROUPS A/C/Y/W VACCINE Aged Out No longer eligible b ased on patient's age to complete this topic PNEUMOCOCCAL VACCINE Aged Out No long er eligible based on patient's age to complete this [place] [address] [facility]
--- OUTSIDE RECORDS SUMMARY | 2024-09-13 10:56 | XMS_ITS | Data Portability ---
Author Organization [facility], Main Office Address [address] [place] [address] Care Team Providers Care Hr Payroll Coordinator Name Role Phone LEYDA MURGUIA Primary Care Provider Assessment No assessment recorded. Plan of Treatment Reminders Order Date Submit Date Provider Last Modified By Organization Details Last Modified Time Details Appointments None recorded. Lab lipid panel, serum 2022 024 [email or web address] 4 [facility], [address], [place], [address], 4 15:04:30 CMP, serum or plasma 2022 024 [email or web address] 4 [facility], 2022 [address], [place], [address], 4 15:04:41 HbA1c (hemoglobin A1c), blood 2022 024 [email or web address] 4 [facility], 2022 [address], [place], [address], 4 15:04:34 vitamin B12, serum 2022 023 [email or web address] [facility], 2022 [address], [place], [address], 3 09:21:11 vitamin D, 25-hydroxy, total, serum 2022 023 [email or web address] [facility], 20[address], [place], [address], 3 09:21:11 lipid panel, serum 2022 023 cindy Paredes, 2022 [address], [place], [address], 3 09:21:11 CMP, serum or plasma 2022 023 cindy Paredes, 2022 [address], [place], [address], 3 09:21:11 CBC w/ auto diff 2022 023 cindy Paredes, 2022 [address], [place], [address], 3 09:21:11 TSH + free T4, serum 2022 023 [email or web address] 4 [facility], 2022 Juliet Perez, [address], [place], [address], 3 09:43:39 urinalysis, dipstick, reflex micro 2022 023 [facility] [address], [address], [place], [address], 3 09:21:12 HbA1c (hemoglobin A1c), blood 2022 023 cindy Paredes, 2022 [address], [place], [address], 3 09:21:11 Referral physical therapist referral 2022 023 [email or web address] [facility], [address] [place], [address], 4 15:04:22 Procedures None recorded. Surgeries None recorded. Imaging None recorded. Medication Orders Mounjaro 10 mg/0.5 mL subcutaneou s pen injector 2022 023 [id number], [address], [place], [place], [id number], 3 16:32:10 meloxicam 15 mg tablet 2022 023 [id number], [address], [place], [place], [id number], 3 11:50:20 Patient TargetsNo targets recorded. Patient InstructionsNo instructions recorded. Reason for Referral Physical Therapist Referral for Low back pain Referring Physician: Leyda Murguia, Internal Medicine, Encounter Date: 11/12/2022 Results Created Date Observation Date Name Description Value Unit Range Abnormal Flag Note LastModifiedBy Organization Detail LastModifiedTime 02/17/20 21 02/17/2021 VITAM IN D, 25-HY DROXY vitamin D, 25-hydroxy 38.9 NG/mL 30.0-1 00.0 Vitam in D defic iency has been defin ed by the Insti tute of Medic ine and an Endoc rine Socie ty pract ice guide line as a level of serum 25-OH vitam in D less than 20 ng/mL (1,2) . The Endoc rine Socie ty [facility] defin e vitam in D insuf ficie ncy as a level betwe en 21 and 29 ng/mL (2). 1. IOM (Inst itute of Medic ine). 2010. Dieta ry refer ence intak es for calci um and D. Josh cooley [place]: The Natio nal [facility] . 2. Raul arenas [place], Uyen horvath [place], Radha off-F errar i SLADE, et al. Evalu ation , treat ment, and preve ntion of vitam in D defic iency : an Endoc rine Socie ty clini amy pract ice guide line. JCEM. 2010; 96(7) :1911 -30. Not Available [facility] ([facility]) [address] [facility], [place], [address], 02/19/2021 03:06:27 02/17/20 21 02/19/2021 A1C W/GLY COMAR K(R) REFLE X Hb A1C diabetic assessment 5.4 %Hb Note: A refle x test was order ed on this speci men. If A1c resul ts are betwe en a value of 6.0 to 8.0 (incl uding 6.0 and 8.0), Glyco Christofer testi ng is perfo rmed. Glyco Christofer refle cts post prand ial gluco se spike s from the past 2 weeks , where as A1c refle cts avera ge glyce laurel contr ol over the past 3 month s. Refer ence Range : Medina l: <5.7 Incre ased risk for diabe christo: 5.7 - 6.4 Ongoi ng Hyper glyce buffy: >6.4 Glyce laurel contr ol for adult s with diabe christo: <7.0 (ADA) Not Available [facility] [address] [place] [address], [address], 02/19/2021 03:06:27 02/17/20 21 02/19/2021 A1C W/GLY COMAR K(R) REFLE X estimated average glucose 108 mg/dL Not Available [facility] [address] [place] [address], [address], 02/19/2021 03:06:27 02/17/20 21 02/19/2021 A1C W/GLY COMAR K(R) REFLE X glycomark(R) (1,5 Ag) tnp ug/mL Testi ng Not Indic ated Refle x not perfo rmed Glyco Christofer( TM) is inten ded for use with manag ing glyce laurel contr ol in diabe tic patie nts. A low resul t corre spond s to high gluco se peaks . 1, 5-AG blood level s can be affec ben by clini amy condi tions or medic ation s. Pleas e refer to the direc tory of servi justina or [facility] websi te test menu for detai led list of limit ation s. Not Available [facility] [address] [facility], [place], [address], 02/19/2021 03:06:27 02/17/20 21 02/17/2021 UA/M W/RFL X CULTU RE, ROUTI NE specific gravity 1.006 1.005- 1.030 Not Available [facility] ([facility]) [address] [facility], [place], [address], 02/19/2021 03:06:26 02/17/20 21 02/17/2021 UA/M W/RFL X CULTU RE, ROUTI NE pH 6.0 5.0-7. 5 Not Available [facility] ([facility]) [address] [facility], [place], [address], 02/19/2021 03:06:26 02/17/20 21 02/17/2021 UA/M W/RFL X CULTU RE ROUTI NE urine-color yellow yellow Not Available [facility] ([facility]) [address] [facility], [place], [address], 02/19/2021 03:06:26 02/17/20 21 02/17/2021 UA/M W/RFL X CULTU RE, ROUTI NE appearance clear clear Not Available [facility] ([facility]) [address] [place], [address], 02/19/2021 03:06:26 02/17/20 21 02/17/2021 UA/M W/RFL X CULTU RE, ROUTI NE WBC esterase negati ve negati ve Not Available [facility] ([facility]) [address] [place], [address], 02/19/2021 03:06:26 02/17/20 21 02/17/2021 UA/M W/RFL X CULTU RE, ROUTI NE protein negati ve negati ve/tra ce Not Available [facility] ([facility]) [address] [place], [address], 02/19/2021 03:06:26 02/17/20 21 02/17/2021 UA/M W/RFL X CULTU RE, ROUTI NE glucose negati ve negati ve Not Available [facility] ([facility]) [address] [facility], [place], [address], 02/19/2021 03:06:26 02/17/20 21 02/17/2021 UA/M W/RFL X CULTU RE, ROUTI NE ketones negati ve negati ve Not Available [facility] ([facility]) [address] [place], [address], 02/19/2021 03:06:26 02/17/2002/17/2021 UA/M W/RFL X CULTU RE, ROUTI NE occult blood negati ve negati ve Not Available [facility] ([facility]) [address] [place], [address], 02/19/2021 03:06:26 02/17/2002/17/2021 UA/M W/RFL X CULTU RE, ROUTI NE bilirubin negati ve negati ve Not Available [facility] ([facility]) [address] [place], [address], 02/19/2021 03:06:26 02/17/2002/17/2021 UA/M W/RFL X CULTU RE, ROUTI NE urobilinogen ,semi-qn 0.2 mg/dL 0.2-1. 0 Not Available [facility] ([facility]) [address] [place], [address], 02/19/2021 03:06:26 02/17/20 21 02/17/2021 UA/M W/RFL X CULTU RE, ROUTI NE nitrite, urine negati ve negati ve Not Available [facility] ([facility]) [address] [place], [address], 02/19/2021 03:06:26 02/17/20 21 02/17/2021 UA/M W/RFL X CULTU RE, ROUTI NE microscopic examination commen t Micro scopi c follo ws if indic ated. Not Available [facility] ([facility]) [address] [facility], [place], [address], 02/19/2021 03:06:26 02/17/20 21 02/17/2021 UA/M W/RFL X CULTU RE, ROUTI NE microscopic examination see below: Micro scopi c was indic ated and was perfo rmed. Not Available [facility] ([facility]) [address] [facility], [place], [address], 02/19/2021 03:06:26 02/17/20 21 02/17/2021 UA/M W/RFL X CULTU RE, ROUTI NE WBC none seen /hpf 0 - 5 Not Available [facility] ([facility]) [address] [facility], [place], [address], 02/19/2021 03:06:26 02/17/20 21 02/17/2021 UA/M W/RFL X CULTU RE, ROUTI NE RBC none seen /hpf 0 - 2 Not Available [facility] ([facility]) [address] [facility], [place], [address], 02/19/2021 03:06:26 02/17/20 21 02/17/2021 UA/M W/RFL X CULTU RE, ROUTI NE epithelial cells (non renal) none seen /hpf 0 - 10 Not Available [facility] ([facility]) [address] [place], [address], 02/19/2021 03:06:26 02/17/20 21 02/17/2021 UA/M W/RFL X CULTU RE, ROUTI NE epithelial cells (renal) pediatric np Not Available [facility] ([facility]) [address] [place], [address], 02/19/2021 03:06:26 02/17/20 21 02/17/2021 UA/M W/RFL X CULTU RELUIS MIGUELI NE casts none seen /lpf none seen Not Available [facility] ([facility]) [address] [facility], [place], [address], 02/19/2021 03:06:26 02/17/20 21 02/17/2021 UA/M W/RFL X CULTU RE, ROUTI NE cast type pediatric np Not Available [facility] ([facility]) [address] [facility], [place], [address], 02/19/2021 03:06:26 02/17/20 21 02/17/2021 UA/M W/RFL X CULTU RE, ROUTI NE crystals pediatric np Not Available [facility] ([facility]) [address] [facility], [place], [address], 02/19/2021 03:06:26 02/17/20 21 02/17/2021 UA/M W/RFL X CULTU RE, ROUTI NE crystal type pediatric np Not Available [facility] ([facility]) [address] [facility], [place], [address], 02/19/2021 03:06:26 02/17/20 21 02/17/2021 UA/M W/RFL X CULTU RE ROUTI NE mucus threads pediatric np Not Available [facility] ([facility]) [address] [facility], [place], [address], 02/19/2021 03:06:26 02/17/20 21 02/17/2021 UA/M W/RFL X CULTU RE ROUTI NE bacteria none seen none seen/f ew Not Available [facility] ([facility]) [address] [facility], [place], [address], 02/19/2021 03:06:26 02/17/20 21 02/17/2021 UA/M W/RFL X CULTU RE, ROUTI NE yeast pediatric np Not Available [facility] ([facility]) [address] [place], [address], 02/19/2021 03:06:26 02/17/20 21 02/17/2021 UA/M W/RFL X CULTU RE, ROUTI NE trichomonas pediatric np Not Available [facility] ([facility]) [address] [facility], [place], [address], 02/19/2021 03:06:26 02/17/20 21 02/17/2021 UA/M W/RFL X CULTU RE, ROUTI NE comment pediatric np Not Available [facility] ([facility]) [address] [facility], [place], [address], 02/19/2021 03:06:26 02/17/20 21 02/17/2021 UA/M W/RFL X CULTU RE, ROUTI NE urinalysis reflex commen t This speci men will not refle x to a Urine Cultu re. Not Available [facility] ([facility]) [address] [place], [address], 02/19/2021 03:06:26 02/17/20 21 02/17/2021 CMP14 +4AC glucose 94 mg/dL 65-99 Not Available [facility] ([facility]) [address] [place], [address], 02/19/2021 03:06:26 02/17/20 21 02/17/2021 CMP14 +4AC BUN 13 mg/dL 6-24 Not Available [facility] ([facility]) [address] [place], [address], 02/19/2021 03:06:26 02/17/20 21 02/17/2021 CMP14 +4AC creatinine 0.77 mg/dL 0.57-1 .00 Not Available [facility] ([facility]) [address] [place], [address], 02/19/2021 03:06:26 02/17/20 21 02/17/2021 CMP14 +4AC eGFR if nonafricn AM 95 mL/mi n/1.7 3 >59 Not Available [facility] ([facility]) [address] [facility], [place], [address], 02/19/2021 03:06:26 02/17/20 21 02/17/2021 CMP14 +4AC eGFR if africn AM 109 mL/mi n/1.7 3 >59 In accor dance with recom menda tions from the NKF-A SN Task force , [facility] is in the proce ss of updat ing its eGFR calcu latio n to the 2020 CKD-E PI creat inine equat ion that estim ates kidne y funct ion witho ut a race varia ble. Not Available [facility] ([facility]) [address] [facility], [place], [address], 02/19/2021 03:06:26 02/17/20 21 02/17/2021 CMP14 +4AC sodium 137 mmol/ L 134-14 4 Not Available [facility] ([facility]) [address] [facility], [place], [address], 02/19/2021 03:06:26 02/17/20 21 02/17/2021 CMP14 +4AC potassium 4.2 mmol/ L 3.5-5. 2 Not Available [facility] ([facility]) [address] [place], [address], 02/19/2021 03:06:26 02/17/20 21 02/17/2021 CMP14 +4AC chloride 97 mmol/ L 96-106 Not Available [facility] ([facility]) [address] [facility], [place], [address], 02/19/2021 03:06:26 02/17/20 21 02/17/2021 CMP14 +4AC carbon dioxide, total 23 mmol/ L 20-29 Not Available [facility] ([facility]) [address] [place], [address], 02/19/2021 03:06:26 02/17/20 21 02/17/2021 CMP14 +4AC calcium 9.8 mg/dL 8.7-10 .2 Not Available [facility] ([facility]) [address] [place], [address], 02/19/2021 03:06:26 02/17/20 21 02/17/2021 CMP14 +4AC phosphorus 3.9 mg/dL 3.0-4. 3 Not Available [facility] ([facility]) [address] [place], [address], 02/19/2021 03:06:26 02/17/20 21 02/17/2021 CMP14 +4AC protein, total 7.7 g/dL 6.0-8. 5 Not Available [facility] ([facility]) [address] [facility], [place], [address], 02/19/2021 03:06:26 02/17/20 21 02/17/2021 CMP14 +4AC albumin 4.8 g/dL 3.8-4. 8 Not Available [facility] ([facility]) [address] [place], [address], 02/19/2021 03:06:26 02/17/20 21 02/17/2021 CMP14 +4AC bilirubin, total 0.3 mg/dL 0.0-1. 2 Not Available [facility] ([facility]) [address] [place], [address], 02/19/2021 03:06:26 02/17/20 21 02/17/2021 CMP14 +4AC alkaline phosphatase 77 IU/L 44-121 Ple ase note refer ence lucy mitchell e Not Available [facility] ([facility]) [address] [facility] [place], [address], 02/19/2021 03:06:26 02/17/20 21 02/17/2021 CMP14 +4AC LDH 208 IU/L 119-22 6 Not Available [facility] ([facility]) [address] [facility], [place], [address], 02/19/2021 03:06:26 02/17/20 21 02/17/2021 CMP14 +4AC AST (SGOT) 25 IU/L 0-40 Not Available [facility] ([facility]) [address] [facility], [place], [address], 02/19/2021 03:06:26 02/17/20 21 02/17/2021 CMP14 +4AC ALT (SGPT) 39 IU/L 0-32 above high normal Not Available [facility] ([facility]) [address] [facility], [place], [address], 02/19/2021 03:06:26 02/17/20 21 02/17/2021 CMP14 +4AC GGT 32 IU/L 0-60 Not Available [facility] ([facility]) [address] [facility], [place], [address], 02/19/2021 03:06:26 02/17/20 21 02/17/2021 CBC WITH DIFFE RENTI AL/PL ATELE T WBC 8.1 x10e3 /uL 3.4-10 .8 Not Available [facility] ([facility]) [address] [facility], [place], [address], 02/19/2021 03:06:25 02/17/20 21 02/17/2021 CBC WITH DIFFE RENTI AL/PL ATELE T RBC 4.58 x10e6 /uL 3.77-5 .28 Not Available [facility] ([facility]) [address] [facility], [place], [address], 02/19/2021 03:06:25 02/17/20 21 02/17/2021 CBC WITH DIFFE RENTI AL/PL ATELE T hemoglobin 14.5 g/dL 11.1-1 5.9 Not Available [facility] ([facility]) [address] [place], [address], 02/19/2021 03:06:25 02/17/20 21 02/17/2021 CBC WITH DIFFE RENTI AL/PL ATELE T hematocrit 43.7 % 34.0-4 6.6 Not Available [facility] ([facility]) [address] [place], [address], 02/19/2021 03:06:25 02/17/20 21 02/17/2021 CBC WITH DIFFE RENTI AL/PL ATELE T MCV 95 fL 79-97 Not Available [facility] ([facility]) [address] [place], [address], 02/19/2021 03:06:25 02/17/20 21 02/17/2021 CBC WITH DIFFE RENTI AL/PL ATELE T MCH 31.7 pg 26.6-3 3.0 Not Available [facility] ([facility]) [address] [place], [address], 02/19/2021 03:06:25 02/17/20 21 02/17/2021 CBC WITH DIFFE RENTI AL/PL ATELE T MCHC 33.2 g/dL 31.5-3 5.7 Not Available [facility] ([facility]) [address] [place], [address], 02/19/2021 03:06:25 02/17/20 21 02/17/2021 CBC WITH DIFFE RENTI AL/PL ATELE T RDW 12.2 % 11.7-1 5.4 Not Available [facility] ([facility]) [address] [place], [address], 02/19/2021 03:06:25 02/17/20 21 02/17/2021 CBC WITH DIFFE RENTI AL/PL ATELE T platelets 318 x10e3 /uL 150-45 0 Not Available [facility] ([facility]) [address] [facility], [place], [address], 02/19/2021 03:06:25 02/17/20 21 02/17/2021 CBC WITH DIFFE RENTI AL/PL ATELE T neutrophils 56 % not estab. Not Available [facility] ([facility]) [address] [facility], [place], [address], 02/19/2021 03:06:25 02/17/20 21 02/17/2021 CBC WITH DIFFE RENTI AL/PL ATELE T lymphs 31 % not estab. Not Available [facility] ([facility]) [address] [facility], [place], [address], 02/19/2021 03:06:25 02/17/20 21 02/17/2021 CBC WITH DIFFE RENTI AL/PL ATELE T monocytes 9 % not estab. Not Available [facility] ([facility]) [address] [facility], [place], [address], 02/19/2021 03:06:25 02/17/20 21 02/17/2021 CBC WITH DIFFE RENTI AL/PL ATELE T eos 3 % not estab. Not Available [facility] ([facility]) [address] [facility], [place], [address], 02/19/2021 03:06:25 02/17/20 21 02/17/2021 CBC WITH DIFFE RENTI AL/PL ATELE T basos 1 % not estab. Not Available [facility] ([facility]) [address] [facility], [place], [address], 02/19/2021 03:06:25 02/17/20 21 02/17/2021 CBC WITH DIFFE RENTI AL/PL ATELE T immature cells pediatric np Not Available [facility] ([facility]) [address] [facility], [place], [address], 02/19/2021 03:06:25 02/17/20 21 02/17/2021 CBC WITH DIFFE RENTI AL/PL ATELE T neutrophils (absolute) 4.5 x10e3 /uL 1.4-7. 0 Not Available [facility] ([facility]) [address] [facility], [place], [address], 02/19/2021 03:06:25 02/17/20 21 02/17/2021 CBC WITH DIFFE RENTI AL/PL ATELE T lymphs (absolute) 2.5 x10e3 /uL 0.7-3. 1 Not Available [facility] ([facility]) [address] [facility], [place], [address], 02/19/2021 03:06:25 02/17/20 21 02/17/2021 CBC WITH DIFFE RENTI AL/PL ATELE T monocytes(ab solute) 0.7 x10e3 /uL 0.1-0. 9 Not Available [facility] ([facility]) [address] [facility], [place], [address], 02/19/2021 03:06:25 02/17/20 21 02/17/2021 CBC WITH DIFFE RENTI AL/PL ATELE T eos (absolute) 0.3 x10e3 /uL 0.0-0. 4 Not Available [facility] ([facility]) [address] [facility], [place], [address], 02/19/2021 03:06:25 02/17/20 21 02/17/2021 CBC WITH DIFFE RENTI AL/PL ATELE T baso (absolute) 0.1 x10e3 /uL 0.0-0. 2 Not Available [facility] ([facility]) [address] [facility], [place], [address], 02/19/2021 03:06:25 02/17/20 21 02/17/2021 CBC WITH DIFFE RENTI AL/PL ATELE T immature granulocytes 0 % not estab. Not Available [facility] ([facility]) [address] [place], [address], 02/19/2021 03:06:25 02/17/20 21 02/17/2021 CBC WITH DIFFE RENTI AL/PL ATELE T immature grans (abs) 0.0 x10e3 /uL 0.0-0. 1 Not Available [facility] ([facility]) [address] [facility], [place], [address], 02/19/2021 03:06:25 02/17/20 21 02/17/2021 CBC WITH DIFFE RENTI AL/PL ATELE T NRBC pediatric np Not Available [facility] ([facility]) [address] [facility], [place], [address], 02/19/2021 03:06:25 02/17/20 21 02/17/2021 CBC WITH DIFFE RENTI AL/PL ATELE T hematology comments: pediatric np Not Available [facility] ([facility]) [address] [place], [address], 02/19/2021 03:06:25 02/17/20 21 02/17/2021 TSH+F REE T4 TSH 1.590 uIU/m L 0.450- 4.500 Not Available [facility] ([facility]) [address] [place], [address], 02/19/2021 03:06:25 02/17/20 21 02/17/2021 TSH+F REE T4 T4,free(dire ct) 1.04 NG/dL 0.82-1 .77 Not Available [facility] ([facility]) [address] [place], [address], 02/19/2021 03:06:25 02/17/20 21 02/17/2021 LP+LD L DIREC T+DLD L/HDL RATIO cholesterol, total 214 mg/dL 100-19 9 above high normal Not Available [facility] ([facility]) [address] [facility], [place], [address], 02/19/2021 03:06:23 02/17/20 21 02/17/2021 LP+LD L DIREC T+DLD L/HDL RATIO triglyceride s 325 mg/dL 0-149 above high normal Not Available [facility] ([facility]) [address] [facility], [place], [address], 02/19/2021 03:06:23 02/17/20 21 02/17/2021 LP+LD L DIREC T+DLD L/HDL RATIO HDL cholesterol 42 mg/dL >39 Not Available [facility] ([facility]) [address] [facility], [place], [address], 02/19/2021 03:06:23 02/17/20 21 02/17/2021 LP+LD L DIREC T+DLD L/HDL RATIO VLDL cholesterol amy 56 mg/dL 5-40 above high normal Not Available [facility] ([facility]) [address] [place], [address], 02/19/2021 03:06:23 02/17/20 21 02/17/2021 LP+LD L DIREC T+DLD L/HDL RATIO LDL chol calc (nih) 116 mg/dL 0-99 above high normal Not Available [facility] ([facility]) [address] [place], [address], 02/19/2021 03:06:23 02/17/20 21 02/17/2021 LP+LD L DIREC T+DLD L/HDL RATIO comment: pediatric np Not Available [facility] ([facility]) [address] [place], [address], 02/19/2021 03:06:23 02/17/20 21 02/17/2021 LP+LD L DIREC T+DLD L/HDL RATIO LDL chol. (direct) 121 mg/dL 0-99 above high normal Not Available [facility] ([facility]) [address] [facility], [place], [address], 02/19/2021 03:06:23 02/17/20 21 02/17/2021 LP+LD L DIREC T+DLD L/HDL RATIO LDL (dir.)/HDL ratio 2.9 ratio 0.0-3. 2 LDL/H DL Men Women 1/2 Avg.R isk 1.0 1.5 Avg.R isk 3.6 3.2 2X Avg.R isk 6.3 5.0 3X Avg.R isk 8.0 6.1 Not Available [facility] ([facility]) [address] [facility], [place], [address], 02/19/2021 03:06:23 06/16/19 21 04/23/2020 XR, ankle , 3 or more view No observ ation record ed. MIGRATION. Not Available 06/12/2022 15:17:34 11/07/19 21 11/01/2020 MAMMO , scree sophia, bilat eral No observ ation record ed. [id number] [facility] [address], [place], [address], 06/12/2022 15:17:34 11/07/19 21 11/01/2020 MAMMO , scree sophia, bilat eral No observ ation record ed. [id number] [facility] [address], [place], [address], 06/12/2022 15:17:34 02/17/20 21 02/16/2021 XR, tempo fang dibul ar joint , bilat eral No observ ation record ed. MIGRATION. [address] , [place], [address], 06/12/2022 15:17:34 02/17/20 21 02/16/2021 XR, tempo fang dibul ar joint , bilat eral No observ ation record ed. [id number] [place] [address], [place], [address], 06/12/2022 15:17:34 04/26/19 23 04/24/2022 MAMMO , vega cortes, digit al, bilat eral No observ ation record ed. [id number] [facility] [address], [place], [address], 06/12/2022 15:17:34 Result Notes None recorded. Problems Name Problem SNOMED Code Status Onset Date Resolution Date Notes Provider Name and Address Organization Details Recorded Time Bilateral temporoman dibular joint pain 1715558154506 9105 Active 2021 Not Available [facility] 3 15:15:07 Vitamin D deficiency 59248932 Active 2021 Not Available [facility] 3 15:15:07 Upper respirator y infection 45727844 Active Not Available [facility] 3 15:15:07 Chronic low back pain 086170886 Active 2022 LIZZETTE Sullivan [address], [address], [place], [address] , [facility] 3 11:48:29 Degenerati on of lumbosacra l interverte bral disc 06230416 Active 2022 LIZZETTE Sullivan [address], [address], [place], [address] , [facility] 3 11:48:35 Low back pain 306801135 Active 2022 LIZZETTE Sullivan [address], [address], [place], [address] , [facility] 3 11:48:47 Mixed hyperlipid emia 337613761 Active 2022 LIZZETTE Sullivan [address], [address], [place], [address] , [facility] 3 16:15:40 Problem Notes None recorded. Medical Equipment None Reported. Allergies Allergen ID Allergen Name Allergen Category Reaction Reaction Severity Criticality Documentation Date Start Date Code Code System Note Provider Name and Address Organization Details Recorded Time 76371 Substance with sulfonami de structure and antibacte rial mechanism of action (substanc e) medicatio n Not available Not available Not available 06/12/2022 55897 8003 SNOMED Not Available [facility] 3 15:17:29 Medications Name Sig Start Date Stop Date Status Note LastModified by Organization Details LastModified Time cyclobenzap rine 10 mg tablet TAKE 1 TABLET BY MOUTH AT BEDTIME NEEDED active Not Available Not Available No t Available prednisone 10 mg tablet 12/11 completed Not Available Not Available Not Available ibuprofen 800 mg tablet TAKE 1 TABLET BY MOUTH TWICE DAILY WITH FOOD NEEDED active Not Available Not Available No t Available fluconazole 150 mg tablet TK 1 T PO QD 06/19 completed Not Available Not Available Not Available benzonatate 200 mg capsule Take 1 capsule 3 times a day by oral route as needed. active Not Available Not Available No t Available hydrocodone 5 mg-acetamin ophen 325 mg tablet Take 1 tablet every 8 hours by oral route as needed. 06/19 completed Not Available Not Available Not Available tretinoin 0.025 % topical cream 06/19 completed Not Available Not Available Not Available fluconazole 200 mg tablet 06/19 completed Not Available Not Available Not Available meloxicam 15 mg tablet Take 1 tablet every day by oral route as needed. active Not Available Not Available No t Available ondansetron HCl 4 mg tablet active Not Available Not Available Not Available spironolact one 100 mg tablet TK 1 T PO D FOR ACNE active Not Available Not Available No t Available Zithromax Z-Facundo 250 mg tablet Take 1 tablet every day by oral route for 6 days. 01/25 completed Not Available Not Available Not Available penicillin V potassium 500 mg tablet 06/19 completed Not Available Not Available Not Available tretinoin 0.05 % topical cream APPLY PEA SIZED AMOUNT TOPICALLY TO FACE EVERY NIGHT 11/12 completed Not Available Not Available Not Available prednisone 10 mg tablets in a dose pack Take 1 tab by mouth, 3 times a day for 3 daysTake 1 tab by mouth 2 times a day for 2 daysTake 1 tab by mouth once a day for 1 day 12/11 completed Not Available Not Available Not Available Tessalon Perles 100 mg capsule Take 1 capsule every 4 hours by oral route as needed. 06/19 completed Not Available Not Available Not Available amoxicillin 875 mg tablet active Not Available Not Available Not Available triamcinolo ne acetonide 0.1 % topical ointment APPLY AA BID PRF RASH 06/19 completed Not Available Not Available Not Available montelukast 10 mg tablet active Not Available Not Available Not Available alprazolam 2 mg tablet 06/19 completed Not Available Not Available Not Available ergocalcife rol (vitamin D2) 1,250 mcg (50,000 unit) capsule TAKE 1 CAPSULE BY MOUTH EVERY WEEK DIRECTED 01/01 completed Not Available Not Available Not Available oxycodone-a cetaminophe n 7.5 mg-325 mg tablet active Not Available Not Available Not Available methylpredn isolone 4 mg tablets in a dose pack 06/19 completed Not Available Not Available Not Available cefdinir 300 mg capsule Take 1 capsule every 12 hours by oral route. active Not Available Not Available No t Available fluticasone propionate 50 mcg/actuati on nasal spray,suspe nsion 2 spray each nostril daily 06/19 completed Not Available Not Available Not Available diazepam 5 mg tablet TK 1 T PO 1 HOUR PRIOR TO PRO. MAY TAKE ADDITIONA L TABLET PRN. active Not Available Not Available No t Available Mononessa (28) 0.25 mg-35 mcg tablet active Not Available Not Available Not Available bupropion HCl XL 150 mg 24 hr tablet, extended release TAKE 1 TABLET BY MOUTH EVERY DAY active Not Available Not Available No t Available Fish Oil 2016 active Not Available Not Available Not Avai lable Zyrtec-D takes daily 2016 active Not Available Not Available Not Avai lable ProAir HFA 90 mcg/actuati on aerosol inhaler active Not Available Not Available Not Available B12 11/12 completed Not Available Not Available Not Available Probiotic 11/12 completed Not Available Not Available Not Available Virtussin AC 10 mg-100 mg/5 mL oral liquid TK 10 ML PO Q 4 TO 6 H PRN 06/19 completed Not Available Not Available Not Available Saxenda 3 mg/0.5 mL (18 mg/3 mL) subcutaneou s pen injector week 1: inject 0.6m sq dailyweek 2: inject 1.2mg sq dailyweek 3: inject 1.8mg sq dailyweek 4: inject 2.4mg sq dailyweek 5: inject 3mg sq daily 02/12 completed Not Available Not Available Not Available Wegovy 1 mg/0.5 mL subcutaneou s pen injector ADMINISTE R 0.5 ML(1 MG) UNDER THE SKIN EVERY WEEK DIRECTED 08/12 completed Not Available Not Available Not Available Wegovy 0.5 mg/0.5 mL subcutaneou s pen injector INJECT 0.5 MG UNDER THE SKIN EVERY WEEK DIRECTED 06/25 completed Not Available Not Available Not Available Mounjaro 7.5 mg/0.5 mL subcutaneou s pen injector ADMINISTE R 7.5 MG UNDER THE SKIN EVERY WEEK DIRECTED active Not Available Not Available No t Available Mounjaro 5 mg/0.5 mL subcutaneou s pen injector ADMINISTE R 5 MG UNDER THE SKIN EVERY WEEK NEEDED 11/12 completed Not Available Not Available Not Available Mounjaro 10 mg/0.5 mL subcutaneou s pen injector Inject 10 mg every week by subcutane ous route as directed. 2022 active Not Available Not Available Not Avai lable Mounjaro 2.5 mg/0.5 mL subcutaneou s pen injector INJECT 2.5 MG UNDER THE SKIN EVERY WEEK DIRECTED 02/12 completed Not Available Not Available Not Available Vitals Date Recorded Body mass index (BMI) Body height Body weight Provider Name and Address Organization Details Last Updated DateTime 06/19/2020 34.1 kg/m2 165.1 cm 89754.44 g Not Available [facility] 06/12/2022 15:14:20 Date Recorded Body height Body temperature Body mass index (BMI) Body weight Respiratory rate Oxygen saturation Oxygen saturation in Arterial blood by Pulse oximetry Heart rate Systolic blood pressure Diastolic blood pressure Provider Name and Address Organization Details Last Updated DateTime 165.1 cm 97.7 [degF] 28.3 kg/m2 63785.7 g 16 /min 98 % 98 % 86 /min 120 mm[Hg] 78 mm[Hg] [facility] [employer] [facility] 3 11:25:25 Date Recorded Body mass index (BMI) Body height Oxygen saturation Oxygen saturation in Arterial blood by Pulse oximetry Heart rate Body temperature Body weight Systolic blood pressure Diastolic blood pressure Provider Name and Address Organization Details Last Updated DateTime 1 34.2 kg/m2 165.1 cm 98 % 98 % 88 /min 98 [degF] 75001.5 9 g 120 mm[Hg] 82 mm[Hg] Not Available [facility] 3 15:14:16 Date Recorded Body mass index (BMI) Body height Oxygen saturation Oxygen saturation in Arterial blood by Pulse oximetry Heart rate Respiratory rate Body temperature Body weight Systolic blood pressure Diastolic blood pressure Provider Name and Address Organization Details Last Updated DateTime 2 35.9 kg/m2 165.1 cm 98 % 98 % 105 /min 16 /min 98.1 [degF] 66534.5 1 g 120 mm[Hg] 80 mm[Hg] Not Available [facility] 3 15:14:17 Date Recorded Body height Body mass index (BMI) Body weight Respiratory rate Oxygen saturation Oxygen saturation in Arterial blood by Pulse oximetry Heart rate Systolic blood pressure Diastolic blood pressure Provider Name and Address Organization Details Last Updated DateTime 3 165.1 cm 27.1 kg/m2 70434.5 6 g 16 /min 99 % 99 % 68 /min 120 mm[Hg] 80 mm[Hg] [facility] [employer] [facility] 3 16:00:16 Social History Question Answer Notes LastModified by Organizat ion Details LastModified Time Tobacco Smoking Status Former Smoker Not Available [facility] 06/12/2022 15:13:16 Do You Have An Advance Directive? Yes [id number] Information not available 06/12/2022 If You Are , What Was Your Level Of Alcohol Consumption Prior To ? None [id number].[id number] 7956 Information not available 06/12/2022 Do You Wear A Helmet When Biking? No MIGRATION.037989 0590 Information not available 06/12/2022 What Is Your Level Of Caffeine Consumption? Moderate MIGRATION.841958 2008 Information not available 06/12/2022 In The 14 Days Before Symptom Onset, Have You Had Close Contact With A Laboratory-confirm ed COVID-19 While That Case Was Ill? No [id number].[id number] 0589 Information not available 06/12/2022 In The 14 Days Before Symptom Onset, Have You Had Close Contact With A Person Who Is Under Investigation For COVID-19 While That Person Was Ill? No [id number].330876 9794 Information not available 06/12/2022 What Type Of Diet Are You Following? REGULAR MIGRATION.586303 5745 Information not available 06/12/2022 What Is The Highest Grade Or Level Of School You Have Completed Or The Highest Degree You Have Received? [id number] MIGRATION.210340 9528 Information not available 06/12/2022 Have There Been Any Changes To Your Family Or Social Situation? No MIGRATION.185632 2146 Information not available 06/12/2022 When Did You Quit Smoking? 6-10yearssinc elastcigarett e MIGRATION.445233 9087 Information not available 06/12/2022 Are There Any Guns Present In Your Home? Yes MIGRATION.299937 9371 Information not available 06/12/2022 Do You Use Insect Repellent Routinely? Yes MIGRATION.159282 1054 Information not available 06/12/2022 Do You Have A Medical Power Of Cash Management Officer? No MIGRATION.787880 2602 Information not available 06/12/2022 Have You Ever Been Counseled For Unhealthy Alcohol Use? No MIGRATION.837438 1845 Information not available 06/12/2022 What Is Your Relationship Status? MIGRATION.407134 9928 Information not available 06/12/2022 Do You Use Your Seat Belt Or Car Seat Routinely? Yes MIGRATION.288327 1372 Information not available 06/12/2022 Do You Have Smoke And Carbon Monoxide Detectors In Your Home? Yes MIGRATION.490535 9165 Information not available 06/12/2022 At What Age Did You Start Smoking Tobacco? 20 MIGRATION.942434 5244 Information not available 06/12/2022 Do You Use Sunscreen Routinely? Yes MIGRATION.949101 4488 Information not available 06/12/2022 Have You Recently Traveled Abroad? No MIGRATION.290623 0365 Information not available 06/12/2022 Do You Have Any Dietary Restrictions? No MIGRATION.521527 2298 Information not available 06/12/2022 Sex: Unknown Functional Status Question Answer Note LastModified by Organizat [employer] Details LastModified Time Do you use any illicit or recreational drugs? No MIGRATION.[id number] 026 Information not available 06/12/2022 Do you or have you ever used any other forms of tobacco or nicotine? No MIGRATION.9472381 026 Information not available 06/12/2022 What is your level of alcohol consumption? Occasional MIGRATION.0928556 026 Information not available 06/12/2022 Are you currently employed? 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 Moderate MIGRATION.[id number] 026 Information not available 06/12/2022 Mental Status Question Answer Note LastModified by Organ[employer] Details LastModified Time Do you feel stressed (tense, restless, nervous, or anxious, or unable to sleep at night)? [id number] [id number].[id number] 6 Information not available 06/12/2022 Family History Relationship Description Onset Age of this Age Resolved Age Notes LastModified by Organization Details LastModified Time Mother History of hypertension [id number] [id number] Not available 06/12/2022 15:13:24 Mother Graves' disease MIGRATION.375 [id number] Not available 06/12/2022 15:13:24 Mother History of thyroid disorder MIGRATION.707 [id number] Not available 06/12/2022 15:13:24 Mother Osteoporosis MIGRATION.0 30 [id number] Not available 06/12/2022 15:13:24 Father Diabetes mellitus MIGRATION.294 [id number] Not available 06/12/2022 15:13:24 Sister History of hypertension MIGRATION.836 [id number] Not available 06/12/2022 15:13:24 Unspecified Relation Malignant neoplastic disease MIGRATION.777 [id number] Not available 06/12/2022 15:13:24 Medical History Condition Response SKIN PROBLEMS Y Gynecological History Statement/Question Response Menses Monthly Y Date of Last Pap 05/15/2016 Date of Last Mammogram 11/01/2020 Current Control Method None Sexually Active? Y Obstetrics History GPAL:G 2 P 0 0 0 2 Type Value Living 2 Total 2 Immunizations Vaccine Type Date Status Note Provider Nam e and Address Organization Details Recorded Time influenza, unspecified formulation 6 completed Not Available [facility] 06/12/2022 15:17:27 Influenza, split virus, quadrivalent, PF 0 completed Not Available [facility] 06/12/2022 15:17:27 Tdap 8 completed Not Available [facility] 06/12/2022 15:17:27 Past Encounters Encounter ID Performer Location Encounter Start Date Encounter Closed Date Diagnosis/Indication Diagnosis SNOMED-CT Code Diagnosis ICD10 Code Diagnosis Note [id number] LIZZETTE Crespo [facility] [address] [place] [address] 06/19/2020 00:00:00 06/19/2020 11:17:00 [id number] LIZZETTE Sullivan [facility] [address] [place] [address] 12/11/2020 00:00:00 12/11/2020 22:02:02 [id number] LIZZETTE Sullivan [facility] [address] [place] [address] 01/01/2022 00:00:00 01/09/2022 18:06:01 [id number] LIZZETTE Sullivan [facility] [address] [place] [address] 11/12/2022 11:18:20 11/12/2022 12:00:31 Degeneration of lumbosacral intervertebral disc 40158685 M51.37 underlying hx noted. see above tx plan. Low back pain 827555689 M54.50 refer to P.T. and start meloxicam 15mg daily. Cholesterol screening 27 2317953 Z13.220 fasting lipids also are due for all other routine annual labs Diabetes m ellitus screening 469891420 Z13.1 Long-term drug therapy 695714483 Z79.899 Endocrine/ metabolic screening 325155758 Z13.800 [id number] LIZZETTE Sullivan [facility] [address] [place] [address] 01/01/2023 15:48:33 01/01/2023 16:17:00 Adult health examination 098776717 Z00.00 well exam completed. labs due in june. november labs reviewed. usrya hook Mixed hyperlipidemia 267 862533 E78.2 improved with diet and weight loss changes. labs due in june next. Diabetes m ellitus screening 715816130 Z13.1 Long-term drug therapy 903692651 Z79.899 Body mass index 30+ - obesity 723469897 Z68.35 refill mounjaro 10mg weekly dosing Health Concerns Section Related Observation LastModified by Organization Detai ls LastModified Time None Recorded Concern Status LastModified by Organization Details LastModified Time None Recorded Advance Directives Directive Y: Payers Encounter Date Sequence Insurance Name Policy Number Policy Smith Covered Member ID Smith Member ID Guarantor Name 11/12/[address] [facility] ([employer] [id number] Olivia Gomes [id number] Olivia Gomes 11/12/2022 2 [employer] - [employer] CHOICE POS II (PPO) [id number] Anmol Gomes [id number] Olivia Gomes 01/01/[address] [facility] ([employer]) [id number] Olivia Gomes [id number] Olivia Gomes 01/01/2023 2 [facility] - [employer] CHOICE POS II (PPO) [id number] Anmol Gomes [id number] Olivia Gomes Notes Date Note Type Note Provider Name and Address Organization Details Recorded Time 12/11/2020 text/html Generic HPI TemplateReported bypatient.Notes:Pt is here today for her wellness exam, doing fine,no complaints Not Available [facility] 12/11/2020 22:02:02 01/01/2022 text/html Generic HPI TemplateReported bypatient.Notes:Pt is here for her wellness. No chronic problems. No complaints today except she wants to talk about options w/her weight. Not Available [facility] 01/09/2022 18:06:01 11/12/2022 text/html Back PainReporte d bypatient.Location:lo wer back and radiating to hips Quality:ache Severity:same;pain level 5/10;moderate (5-7);interference with sleep;interference with work Duration:acute; intermittent; worse at night Onset/Timinweeks ago Context:trauma (back in 2017); unusual activity (down on the ground w/puppy a lot); prior back problems Alleviating Factors:nothing yet, she wants a referral to PT to strengthen lower back Aggravating Factors:sitting on floor or hard chair Associated Symptoms:no fever; no weak limbs; no numbness of the legs/feet; no incontinence; no shortness of breath;tingling LIZZETTE Sullivan [address], [place] [address], [place], [address], [facility] 12/08/2022 21:12:33 01/01/2023 text/html Wellness LIZZETTE Sullivan [address], [place] [address], [place], [address], [facility] 01/11/2023 23:43:21 01/01/2023 text/html Generic HPI TemplateReported bypatient.Notes:Pt is here for her wellness. No chronic problems. She is seeing PT right now. LIZZETTE Sullivan [address], [place] [address], [place], [address], [facility] 01/11/2023 23:43:21 OBGyn Episode No OBEpisode recorded.
--- OUTSIDE RECORDS SUMMARY | 2024-09-13 10:56 | XMS_ITS | Clinical Summary ---
Author Organization Formerly [facility] Address [address] [place] [address] Care Team Providers Care Service Station Cashier Name Role Phone Leyda Murguia Primary Care Pr ovider Emmanuel Sanford DPT Unavailable Allergies Active Allergy Reactions Criticality Noted Date Comments Sulfa (Sulfonamide Antibiotics) Medications fluticasone (FLONASE) 50 mcg/actuation nasal spray Active sulfacetamide sodium-sulfur (AVAR,PLEXION) 10-5 % (w/w) topical emulsion APPLY TO AFFECTED AREA(S) AND WASH ONCE DAILY for rosacea and seborrhea 4 Active diazePAM (VALIUM) 5 mg tablet Take 1 tablet (5 mg total) by mouth as directed Take 1 tablet 1 hour prior to MRI, may take 1 immediately prior if needed 2 tablet 0 Active triamcinolone (KENALOG) 0.1 % ointment triamcinolone acetonide 0.1 % topical ointment APPLY AA BID PRF RASH Active ergocalciferol (VITAMIN D) 50,000 unit capsule TK 1 C PO Q WK UTD 0 Active spironolactone (ALDACTONE) 100 mg tabletIndicati ons:Acne vulgaris Take 1 tablet (100 mg total) by mouth daily 90 tablet 6 4 Active tretinoin (RETIN-A) 0.05 % creamIndicatio ns:Acne vulgaris APPLY A PEA SIZED AMOUNT EXTERNALLY TO FACE EVERY NIGHT 45 g 11 4 Active Active Problems Problem Noted Date Diagnosed Date Lumbar radiculopathy 06/11/2019 Spondylosis of lumbar spine 11/10/2017 Keratosis pilaris 11/04/2014 Seborrheic eczema 06/04/2013 Acne 08/25/2012 Skin tag 08/25/2012 Medical History Medical History Date Comments Chronic pain disorder Low back pain Family History Medical History Relation Name Comments Diabetes Father Graves' disease Mother Hypertension Mother Hypothyroidism Mother Psoriasis Mother's Sister Family histo ry of psoriasis - (Added by TW Conv) Relation Name Status Comments Father Alive Mother Alive Mother's Sister Social History Tobacco Use Types Packs/Day Years Used Date Smoking Tobacco: Former Cigarettes 1 15 Smokeless Tobacco: Never Comments:Quit at age 32 Alcohol Use Standard Drinks/Week Comments Yes 0 (1 standard drink = 0.6 oz pur e alcohol) ! 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 Gender Identity Not on file Sexual Orientation Not on file Obstetrics History Last Filed Vital Signs Vital Sign Reading Time Taken Comments Blood Pressure 130/84 12/16/2019 4:40 PM CDT Pulse 103 12/16/2019 4:40 PM CDT Temperature 37 C (98.6 F) 12/16/2019 3:25 PM CDT Respiratory Rate 16 12/16/2019 4:40 PM CDT Oxygen Saturation 96% 12/16/2019 4:30 PM CDT Inhaled Oxygen Concentration - - Weight 92.5 kg (204 lb) 12/16/2019 3:25 PM CDT Height 167.6 cm (5' 6) 12/16/2019 3:25 PM CDT Body Mass Index 32.93 12/16/2019 3:25 PM CDT Plan of Treatment Health Maintenance Due Date Last Done Comments Cervical Cancer Screening 1977 Colon Cancer Screening-Colonoscopy 1977 Depression Screening 1977 Hepatitis C Screening 1977 Hepatitis B Screening 1995 Regular Well Visit/Exam 18-64 1995 Breast Cancer Screening-Mammogram 11/06/2021 11/06/2020 Covid-19 Vaccine (2023-2 5 season) 2023 04/04/2021, 05/31/2020, 05/10/2020 Influenza Vaccine (Season Ended) 2024 03/26/2022, 02/01/2020, 02/13/2016 DTaP/Tdap/Td Vaccine (2 - Td or Tdap) 08/28/2027 08/27/2017 Pneumococcal vaccine <65 Aged Out No longer eligible based on patient's age to complete this topic Goals Goal Patient Goal Type Associated Problems Recent Progress Patient-Stated? Author CCM Chronic Pain Care Plan Chronic Care Management Improving( 3:32 PM CDT) Albertina Tran RN Note: Problem: Chronic Pain Goals: 1. Minimize further functional decline 2. Maximize quality of life 3. Control pain Strategies: - Activity/exercise program recommendation - Conservative stepwise pain medicine strategy with multi-disciplinary approach - Recommend healthy lifestyle strategies and compensatory methods as needed Insurance [employer] [employer] [employer] [facility] CHOICE PLUS [employer] SIG [id number] Care Teams Service Station Cashier Relationship Specialty Start Date End Date Leyda Murguia PA PCP - General 08/15/16 Emmanuel Sanford DPT Physical Therapist Physical Therapy 11/16/18
--- OUTSIDE RECORDS SUMMARY | 2024-09-13 10:56 | XMS_ITS | Referral Summary ---
Author Organization [facility] Healthcare Address [address] [place] [address] Care Team Providers Care Cashier Payments Received Name Role Phone Leyda Murguia Primary Care Pr ovider Emmanuel Sanford DPT Unavailable [phone] Allergies Active Allergy Reactions Criticality Noted Date [...] eczema 06/04/2013 Acne 08/25/2012 Skin tag 08/25/2012 Social History Tobacco Use Types Packs/Day Years Used Date Smoking Tobacco: Former Cigarettes 1 15 Smokeless Tobacco: Never Comments:Quit at age 32 Alcohol Use Standard Drinks/Week Comments Yes 0 (1 standard drink = 0.6 oz pur e alcohol) ! 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 Author CCM Chronic Pain Care Plan Chronic Care Management Improving( 3:32 PM CDT) No Albertina Wise, RN Note: Problem: Chronic Pain Goals: 1. Minimize further functional decline 2. Maximize quality of life 3. Control pain Strategies: - Activity/exercise program recommendation - Conservative stepwise pain medicine strategy with multi-disciplinary approach - Recommend healthy lifestyle strategies and compensatory methods as needed Insurance [employer] [facility] HMO/PPO Address: [address] [address] [place] [address] [facility] [employer] [facility] H[facility]/PPO Address: [address] [address] [place] [address] [employer] [address] [place] [address] Care Teams Cashier Payments Received Relationship Specialty Start Date End Date Leyda Murguia PA PCP - General 08/15/16 Emmanuel Sanford DPT Physical Therapist Physical Therapy 11/16/18
--- NOTE | 2024-09-13 12:16 | PM.IMHP ---
H&P: HPI History of Present Illness Date/Time: 09/13/24 12:16 Chief Complaint: Screening colonoscopy Narrative: This is the patient's first colonoscopy. There are no GI symptoms and there is no family history of colorectal cancer. Review of Systems Review of Systems: All systems reviewed & are unremarkable except as noted in HPI and below [facility] Social History Social History Smoking status: Never smoker Alcohol intake: current Substance use: never Substance use type: does not use Living arrangements: with family Spiritual care concerns: No Meds Home Medications and Allergies Home Medications ?Medication ?Instructions ?Recorded ?Confirmed ?Type bupropion HCl 150 mg 24 hr tablet, 150 mg PO DAILY 07/15/24 09/13/24 History extended release spironolactone 100 mg tablet 100 mg PO Q12H 07/15/24 09/13/24 History tirzepatide 7.5 mg/0.5 mL 7.5 mg subcut WEEKLY 07/15/24 09/13/24 History subcutaneous pen injector (Mounjaro) Allergies Allergy/AdvReac Type Severity Reaction Status Date / Time Sulfa (Sulfonamide Allergy Mild RASH Verified 09/13/24 11:10 Antibiotics) Vital Signs Vital Signs - 24 hr 09/13/24 10:40 Temperature 98.5 F Pulse Rate 92 Respiratory Rate 18 Blood Pressure 120/71 Pulse Oximetry 99 Oxygen Delivery Room Air Exam Const: General: cooperative and healthy appearing Resp: Effort & Inspection: normal respiratory effort and able to speak in complete sentences Auscultation: clear to auscultation bilaterally Cardio: Rate: regular rate Rhythm: regular rhythm GI: Inspection: normal to inspection GI Palp: No No hepatosplenomegaly present Auscultation: normal bowel sounds Rectal Exam: deferred Skin: General skin exam: normal color Psych: Appearance: grossly normal Mental Status: mental status grossly normal Assessment and Plan Assessment and plan (1) Encounter for screening colonoscopy: Code(s): Z12.11 - Encounter for screening for malignant neoplasm of colon Status: Acute Assessment and Plan: The patient is deemed a good candidate for the procedure. Consent signed. Will proceed.
[2024-09-13 12:38] VITALS: BP 103/69; PULSE 94; RESP 16; O2SAT 99
--- NOTE | 2024-09-13 12:42 | WPDANESPN ---
Anes - Prog Note Post-Op Date/Time: 09/13/24 12:42 Cardiovascular status: normal Respiratory status: normal Airway patency: baseline Mental status: baseline Post-Op hydration status: normal Vital Signs: Last Vital Signs Temp 36.9 C 09/13/24 10:40 Pulse 92 09/13/24 10:40 Resp 18 09/13/24 10:40 BP 120/71 09/13/24 10:40 Pulse Ox 99 09/13/24 10:40 O2 Del Method Room Air 09/13/24 10:40 Pain Score (VAS): 0 I/O: Intake & Output 09/12/24 09/13/24 09/13/24 23:59 07:59 15:59 Intake Total 300 Balance 300 Post-procedural complaints: none Patient Feedback: Patient satisfied with anesthetic care. Other Findings: Patient vital signs back to baseline. Patient denies nausea and vomiting. Patient's pain under control. Patient OK for discharge.
[2024-09-13 12:48] VITALS: BP 94/64; PULSE 91; RESP 15; O2SAT 100
[2024-09-13 12:58] VITALS: BP 123/70; PULSE 79; RESP 16; O2SAT 100
[2024-09-13 13:08] VITALS: BP 123/76; PULSE 77; RESP 15; O2SAT 100
== END 2024-09-13 13:16 | disposition home or self-care (01) ==
PROVIDERS: PCP Physician Assistant; Visit Provider Internal Medicine Gastroenterology
PROC: 0DJD8ZZ Inspection of Lower Intestinal Tract, Via Natural or Artificial Opening Endoscopic (ICD-10-PCS; CPT 45378; principal; 2024-09-13 12:00)
DX: Z12.11 Encounter for screening for malignant neoplasm of colon (principal)
CPT/HCPCS: 45378